=== PATIENT | male | born 1995 | race Two or more races ===

== ENCOUNTER 2025-03-01 08:01 | Outpatient (CLI) | payer BC, SELFPAY | END 2025-03-01 08:02 | disposition home or self-care (01) | PROVIDERS: PCP Family Medicine; Visit Provider Family Medicine | DX: Z13.6 Encounter for screening for cardiovascular disorders (principal); Z13.1 Encounter for screening for diabetes mellitus | CPT/HCPCS: 80061; 82947 ==